=== PATIENT | male | born 1990 | race Caucasian/White ===

== ENCOUNTER 2017-11-23 12:28 | Inpatient (IN) | payer OTHER ==
[~2017-11-23] VITALS: Ht 190.5 cm; Wt 74.9 kg
[2017-11-23 15:40] LABS: HEMATOCRIT 44.9 % (38.0-50.0); HEMOGLOBIN 15.5 G/DL (12.5-16.6); MCH 30.9 PG (29.0-34.0); MCHC 34.5 G/DL (30.0-36.0); MCV 89.6 FL (86-99); PLATELET COUNT 229 K/uL (156-360); RBC DIS.WIDTH-CV 12.3 % (11.8-14.6); RBC DIS.WIDTH-SD 40.4 % (39-53); RED BLOOD COUNT 5.01 M/uL (4.00-5.50); WHITE BLOOD COUNT 6.1 K/uL (4.1-10.2)
[2017-11-23 15:56] LABS: CHLORIDE 104 mEq/L (99-109); POTASSIUM 4.3 mEq/L (3.7-5.4); SODIUM 139 mEq/L (136-147)
[2017-11-23 15:57] LABS: GLUCOSE 103 mg/dL (70-99)
[2017-11-23 16:01] LABS: CREATININE 1.2 mg/dL (0.6-1.3); GFR ESTIMATE (CALCULATED) > 59 mL/min/ (58.99-99999); SERUM ETHYL ALCOHOL < 10 mg/dL
[2017-11-23 16:02] LABS: UREA NITROGEN (BUN) 12 mg/dL (9-23)
[2017-11-23 17:37] LABS: AMPHETAMINE NEGATIVE (500 ng/mL); BARBITURATES NEGATIVE (200 ng/mL); BENZODIAZEPINES NEGATIVE (150 ng/mL); BUPRENORPHINE NEGATIVE (10 ng/mL); COCAINE NEGATIVE (150 ng/mL); METHADONE NEGATIVE (200 ng/mL); METHAMPHETAMINE NEGATIVE (500 ng/mL); OPIATES (MORPHINE) NEGATIVE (100 ng/mL); OXYCODONE NEGATIVE (100 ng/mL); PHENCYCLIDINE NEGATIVE (25 ng/mL); PROPOXYPHENE NEGATIVE (300 ng/mL); THC CANNABINOIDS NEGATIVE (50 ng/mL); TRICYCLIC ANTIDEPRESSANTS NEGATIVE (300 ng/mL)
[2017-11-23 19:21] VITALS: BP 130/75
[2017-11-24 07:37] VITALS: BP 119/66
[2017-11-24 15:17] VITALS: BP 133/75
[2017-11-25 09:24] VITALS: BP 143/66
[2017-11-25 15:28] VITALS: BP 141/87
[2017-11-26 08:10] VITALS: BP 119/77
[2017-11-26 15:42] VITALS: BP 120/64
[2017-11-27 07:53] VITALS: BP 125/60
[2017-11-27 15:23] VITALS: BP 130/78
[2017-11-28 07:51] VITALS: BP 144/67
[2017-11-28] MEDS ORDERED: CLONAZEPAM0.5 MG PO (09:53)
[2017-11-28] MEDS ORDERED: ESCITALOPRAM OX10 MG PO (09:53)
== END 2017-11-28 10:40 | disposition home or self-care (01) | DRG 881 ==
LOC: EME 12:28 → 1WEST 18:27 → EDOF 18:27 → ENRESERV 19:17 → 1WEST 19:17
DX: F43.21 Adjustment disorder with depressed mood (principal); R45.851 Suicidal ideations; F41.1 Generalized anxiety disorder; R45.84 Anhedonia; K30 Functional dyspepsia; R63.0 Anorexia; Z68.20 Body mass index [BMI] 20.0-20.9, adult; Z56.0 Unemployment, unspecified; Z63.4 Disappearance and death of family member; Z81.8 Family history of other mental and behavioral disorders
CPT/HCPCS: 80048; 85027; 90686; 90839; 97150 GO; 97165 GO; 99281; 99284; G0480; Q0177